=== PATIENT | male | born 1950 | race American Indian/Alaskan Native ===

== ENCOUNTER 2021-08-08 06:05 | Day surgery (SDC) | payer MEDICARE, OTHER ==
[2021-08-03 13:06] LABS: Hematocrit 44.5 % (35.5-45.6); Hemoglobin 14.1 gm/dl (11.8-15.2); Mean Corpuscular HGB Conc 32 % (32-34); Mean Corpuscular Volume 86 fl (84-94); Platelet Count 162 K/mm3 (140-440); Red Blood Count 5.21 M/mm3 (3.65-5.03); Red Cell Distribution Width 15.7 % (13.2-15.2)
[2021-08-03 13:31] LABS: Alanine Aminotransferase 19 units/L (7-56); Albumin 4.6 g/dL (3.9-5); BUN/Creatinine Ratio 16; Blood Urea Nitrogen 14 mg/dL (9-20); Calcium 9.4 mg/dL (8.4-10.2); Hemolysis Index 19
[2021-08-08] MEDS ORDERED: LACTATED RINGERS 1,000 ML IV SCH (06:30)
[2021-08-08] MEDS ORDERED: BACTERIOSTATIC SODIUM CHLORIDE 0.9% 30 ML VIAL INFILTRATI ONE (06:36)
[2021-08-08] MEDS ORDERED: ceFAZolin/Water 2 GM/20 ML 2 GM/20 ML SYRINGE IV ONE (07:08)
--- NOTE | 2021-08-08 07:29 | Anesthesia Consultation ---
Anesthesia Consult and Med Hx Date of service: 08/08/21 - Airway Anesthetic Teeth Evaluation: Good ROM Head & Neck: Adequate Mental/Hyoid Distance: Adequate Mallampati Class: Class III Intubation Access Assessment: Possibly Difficult - Pre-Operative Health Status ASA Pre-Surgery Classification: ASA2 - Pulmonary Hx Smoking: No Hx Asthma: No COPD: No Hx Sleep Apnea: No - Cardiovascular System Hx Hypertension: Yes (X 4 YRS) - Central Nervous System Hx Psychiatric Problems: No - Endocrine Hx Renal Disease: (BPH) - Hematic Hx Anemia: No - Other Systems Hx Alcohol Use: Yes (ONE BEER QD) Hx Cancer: No
--- NOTE | 2021-08-08 07:30 | Anesthesia Day of Surgery ---
Anesthesia Day of Surgery - Day of Surgery Patient Examined: Yes Patient H&P Reviewed: Yes Patient is NPO: Yes
[2021-08-08] MEDS ORDERED: MIDAZOLAM 2 MG/2 ML INJ ONE (07:32)
[2021-08-08] MEDS ORDERED: FAMOTIDINE 20 MG/2 ML INJ IV ONE (07:32)
[2021-08-08] MEDS ORDERED: HYDROmorphone 1 MG/1 ML INJ ONE (07:35)
[2021-08-08] MEDS ORDERED: LIDOCAINE MPF (2%) 20 MG/1 ML VIAL 5 ML ONE (07:36)
[2021-08-08] MEDS ORDERED: propofoL 200 MG/20 ML VIAL IV ONE (07:36)
[2021-08-08] MEDS ORDERED: SODIUM CHLORIDE 0.9% 1000 ML 1,000 ML ONE (07:37)
[2021-08-08] MEDS ORDERED: ceFAZolin/Water 2 GM/20 ML 2 GM/20 ML SYRINGE IV NR (08:00)
[2021-08-08] MEDS ORDERED: MIDAZOLAM 2 MG/2 ML INJ IV NR (08:00)
[2021-08-08] MEDS ORDERED: FAMOTIDINE 20 MG/2 ML INJ IV NR (08:00)
[2021-08-08] MEDS ORDERED: ePHEDrine SULFATE 50 MG/1 ML INJ ONE (08:02)
--- NOTE | 2021-08-08 08:38 | Short Stay Summary ---
Short Stay Documentation Date of service: 08/01/21 - History H&P: obtained from office - Allergies and Medications Current Medications: Allergies No Known Allergies Allergy (Verified 03/08/14 10:52) Home Medications Medication Instructions Recorded Confirmed Last Taken Type Cholecalciferol (Vitamin D3) 2,000 unit PO QDAY 08/02/21 08/02/21 08/07/21 History [Vitamin D3 2,000 UNIT CAP] hydroCHLOROthiazide [HCTZ] 25 mg PO QDAY 08/02/21 08/02/21 08/07/21 History Active Medications Famotidine (Famotidine 20 Mg/2 Ml Inj) 20 mg IV PREOP NR Stop: 08/08/21 10:00 Last Admin: 08/08/21 07:34 Dose: 20 mg Lactated Ringer's (Lactated Ringers) 1,000 mls @ 100 mls/hr IV DIRECT ZANE Last Admin: 08/08/21 07:00 Dose: 100 mls/hr Midazolam HCl (Midazolam 2 Mg/2 Ml Inj) 2 mg IV PREOP NR Stop: 08/08/21 23:59 Last Admin: 08/08/21 07:34 Dose: 2 mg - Brief post op/procedure progress note Date of procedure: 08/08/21 Pre-op diagnosis: bph Post-op diagnosis: same Procedure: cysto, rpg, REZUM Anesthesia: GETA Surgeon: ARSLAN RASHID Estimated blood loss: minimal Pathology: none Condition: stable - Hospital course Hospital course: bactrim & norco on chart - Disposition Condition at discharge: Stable Disposition: 01 HOME / SELF CARE / HOMELESS Short Stay Discharge Plan Follow up with: DAE REIS MD [Primary Care Provider] - 7 Days
[2021-08-08] MEDS ORDERED: WATER FOR IRRIG STERILE 1,500 ML BOTTLE IR ONE (08:49)
[2021-08-08] MEDS ORDERED: IOHEXOL 240 MG/ML 200 ML IV ONE (08:50)
[2021-08-08] MEDS: HYDROmorphone 1 MG/1 ML INJ IV PRN ×2 (09:30→10:05)
--- NOTE | 2021-08-08 09:52 | Operative Report ---
DATE OF SURGERY: 08/08/2021 PREOPERATIVE DIAGNOSIS: Benign prostatic hypertrophy. POSTOPERATIVE DIAGNOSIS: Benign prostatic hypertrophy. PROCEDURES: Cystoscopy, bilateral retrograde pyelograms, Rezum water vapor therapy of the prostate. SURGEON: Aram Butler MD ANESTHESIA: General. ESTIMATED BLOOD LOSS: Minimal. FLUIDS: Crystalloid. COMPLICATIONS: No complications. INDICATIONS: This patient is a 70-year-old gentleman who has been followed in my office for several years for BPH. He has been on Flomax with some improvement of his symptoms. His IPSS score is 24. He underwent urodynamic testing and was found to have a peak flow of 9 mL with a bladder capacity of 200 mL. No postvoid residual. We discussed options of continued medical management versus Rezum or TURP, the patient wanted to proceed with Rezum therapy. He reviewed the video. Questions were answered. Risks, benefits and complications were explained. DESCRIPTION OF PROCEDURE: The patient was taken to the operative suite, placed in a supine position. After adequate general anesthesia, was placed in the dorsal lithotomy position, prepped and draped in a sterile fashion. Pancystourethroscopy was performed with a 22-[place]or[place] cystoscope, no urethral abnormalities. Prostate, moderate bilobe obstruction at a small median lobe. Bladder, diffuse trabeculation. No tumors or stones could be appreciated. Both ureteral orifices in normal position. Bilateral retrograde pyelograms were obtained with an 8-[place] catheter and 8 mL of contrast. He did have some J-hooking of the prostate. No filling defects or obstruction. Using the Rezum device measurements of the prostate length was taken appeared to be 3.5 cm, and therefore I used 3 treatments in each lobe approximately 1 cm apart in a zigzag fashion to accommodate 3 treatments on each side, 9 seconds ____. The patient tolerated the procedure well. Rectal exam was benign. A 20-[place] tip catheter was placed without difficulty. He was extubated and taken to recovery room. He will go home on Bactrim and Edroy and follow up in the office. TID: [id number] RECEIPT: [id number] IRLANDA/ROSCOE/ALEXIA
--- NOTE | 2021-08-08 15:07 | Fluoroscopy Report ---
4 fluoroscopic images submitted Indication: Intraoperative localization Impression: 4 images of the abdomen were submitted for documentation purposes with radiology involve ment. Patient had retrograde pyelograms utilizing 10 mL of Omnipaque 300. Please refer to the opera tive note for complete details. Fluoroscopic time: 8 seconds Signer Name: Joesph Deal MD Signed: 08/08/2021 3:03 PM Workstation Name: [id number]
--- NOTE | 2021-08-08 17:38 | Post Anesthesia Evaluation ---
- Post Anesthesia Evaluation Patient Participated: Yes Airway Patent: Yes Stable Respiratory Function: Yes Nausea/Vomiting: No Temp > 96.8F: Yes Pain Manageable: Yes Adequeate Hydration: Yes Anesthesia Complications: No Block Receding Appropriately: Not Applicable Patient on Ventilator: No
[2021-08-08 20:43] VITALS: BP 144/82
== END 2021-08-08 10:45 | disposition home or self-care (01) ==
LOC: OR 06:05
PROVIDERS: ATTEND Urology
DX: N40.1 Benign prostatic hyperplasia with lower urinary tract symptoms (principal); Z20.822 Contact with and (suspected) exposure to COVID-19; I10 Essential (primary) hypertension; Z79.899 Other long term (current) drug therapy; Z98.890 Other specified postprocedural states
CPT/HCPCS: 36415; 53854; 74420; 80053; 85027; J0690; J1170; J2250; J2704; J3490; J7030; J7120; Q9967; U0003; Q0162